=== PATIENT | female | born 1965 | race Caucasian/White ===

== ENCOUNTER 2022-10-10 12:47 | Outpatient (REF) | payer OTHER, SELFPAY | END 2022-10-10 12:48 | disposition home or self-care (01) | LOC: HO.MDS 12:47 | PROVIDERS: Visit Provider Internal Medicine Medical Oncology | DX: D50.9 Iron deficiency anemia, unspecified (principal) | CPT/HCPCS: 96365; J1756 ==

== ENCOUNTER 2022-10-21 08:08 | Outpatient (REF) | payer OTHER, SELFPAY | END 2022-10-21 08:09 | disposition home or self-care (01) | LOC: HO.MDS 08:08 | PROVIDERS: Visit Provider Internal Medicine Medical Oncology | DX: D50.9 Iron deficiency anemia, unspecified (principal) | CPT/HCPCS: 96365; J1756 ==

== ENCOUNTER 2022-10-30 07:41 | Outpatient (REF) | payer OTHER, SELFPAY | END 2022-10-30 07:42 | disposition home or self-care (01) | LOC: HO.MDS 07:41 | PROVIDERS: Visit Provider Internal Medicine Medical Oncology | DX: D50.9 Iron deficiency anemia, unspecified (principal) | CPT/HCPCS: 96365; J1756 ==

== ENCOUNTER 2022-11-06 08:11 | Outpatient (REF) | payer OTHER, SELFPAY ==
[2022-11-06 08:42] LABS: MANUAL DIFF FLAG NO
[2022-11-06 08:45] LABS: Basophils Percent Auto 0.7 % (0-2); Eosinophils Absolute Auto 0.2 X10*3/uL (0.0-0.4); Eosinophils Percent Auto 4.9 % (0-4); Hematocrit 32.1 % (37.0-47.0); Hemoglobin 10.1 g/dl (12.0-16.0); Imm Gran Abs Auto 0.01 X10*3/uL (0.00-0.03); Imm Gran Pct Auto 0.2 % (0.0-0.4); Lymphocytes Absolute Auto 1.8 X10*3/uL (1.2-4.9); Lymphocytes Percent Auto 41.4 % (20-40); Mean Corpuscular HGB Conc 31.5 g/dl (31.0-35.0); Mean Corpuscular Hemoglobin 25.4 pg (27.0-33.0); Mean Corpuscular Volume 80.9 fL (80.0-98.0); Mean Platelet Volume 10.2 fL (9.4-12.3); Monocytes Absolute Auto 0.4 X10*3/uL (0.1-1.2); Monocytes Percent Auto 8.6 % (2-11); Neutrophils Absolute Auto 1.9 x10*3/uL (2.0-8.3); Neutrophils Percent Auto 44.2 % (45-73); Platelet Count 236 X10*3/uL (160-400); Red Blood Count 3.97 X10*6/uL (4.20-5.50); Red Cell Distribution Width 23.6 % (11.0-16.0); White Blood Count 4.3 X10*3/uL (4.8-10.8)
[2022-11-06 09:21] LABS: Ferritin 107 ng/mL (10-250)
== END 2022-11-06 08:12 | disposition home or self-care (01) ==
LOC: HO.MDS 08:11
PROVIDERS: Visit Provider Internal Medicine Medical Oncology
DX: D50.9 Iron deficiency anemia, unspecified (principal)
CPT/HCPCS: 36415; 82728; 85025; 96365; J1756

== ENCOUNTER 2022-11-14 13:33 | Outpatient (REF) | payer OTHER, SELFPAY | END 2022-11-14 13:34 | disposition home or self-care (01) | LOC: HO.MDS 13:33 | PROVIDERS: Visit Provider Internal Medicine Medical Oncology | DX: D50.9 Iron deficiency anemia, unspecified (principal) | CPT/HCPCS: 96365; J1756 ==

== ENCOUNTER 2022-11-21 07:42 | Outpatient (REF) | payer OTHER, SELFPAY | END 2022-11-21 07:43 | disposition home or self-care (01) | LOC: HO.MDS 07:42 | PROVIDERS: Visit Provider Internal Medicine Medical Oncology | DX: D50.9 Iron deficiency anemia, unspecified (principal) | CPT/HCPCS: 96365; J1756 ==

== ENCOUNTER → 2022-11-21 09:00 | Outpatient (BNV) | payer OTHER, SELFPAY | PROVIDERS: PCP Physician Assistant; Visit Provider Internal Medicine Medical Oncology | DX: D50.9 Iron deficiency anemia, unspecified (principal) | CPT/HCPCS: 99213 ==

== ENCOUNTER 2022-11-28 07:09 | Outpatient (REF) | payer OTHER, SELFPAY | END 2022-11-28 07:10 | disposition home or self-care (01) | LOC: HO.MDS 07:09 | PROVIDERS: Visit Provider Internal Medicine Medical Oncology | DX: D50.9 Iron deficiency anemia, unspecified (principal) | CPT/HCPCS: 96365; J1756 ==

== ENCOUNTER 2022-12-06 07:36 | Outpatient (REF) | payer OTHER, SELFPAY | END 2022-12-06 07:37 | disposition home or self-care (01) | LOC: HO.MDS 07:36 | PROVIDERS: Visit Provider Internal Medicine Medical Oncology | DX: D50.9 Iron deficiency anemia, unspecified (principal) | CPT/HCPCS: 96365; J1756 ==